=== PATIENT | male | born 1940 | race Caucasian/White ===

== ENCOUNTER 2022-01-19 20:36 | Emergency (ER) | payer MEDICARE, OTHER ==
[~2022-01-19] VITALS: Ht 170.2 cm; Wt 72.1 kg
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
--- NOTE | 2022-01-19 23:39 | NUR ---
Radha dtr [phone] Suri in-law [phone]
[2022-01-19] MEDS ORDERED: ACETAMINOPHEN 325 MG TABLET ONE (23:48)
[2022-01-20] MEDS ORDERED: ACETAMINOPHEN 325 MG TABLET PO ONE
[2022-01-20] MEDS ORDERED: ACETAMINOPHEN 325 MG TABLET ONE (00:05)
--- NOTE | 2022-01-20 02:42 | NUR ---
PT SLEEPING COMOFORTABLY BREATHING UNLABORED. AWAITING PICKUP FOR DC.
[2022-01-20 06:19] VITALS: BP 141/78
--- NOTE | 2022-01-20 06:19 | NUR ---
Patient discharged to home in stable condition. Written and verbal after care instructions given. Patient verbalizes understanding of instruction.
== END 2022-01-20 06:20 | disposition home or self-care (01) ==
LOC: ER 20:42
DX: S40.012A Contusion of left shoulder, initial encounter (principal); S20.211A Contusion of right front wall of thorax, initial encounter; F19.10 Other psychoactive substance abuse, uncomplicated; F17.200 Nicotine dependence, unspecified, uncomplicated; Z60.2 Problems related to living alone; V89.2XXA Person injured in unspecified motor-vehicle accident, traffic, initial encounter; Y93.89 Activity, other specified; Y92.89 Other specified places as the place of occurrence of the external cause; Y99.8 Other external cause status
CPT/HCPCS: 71045-TC; 73030-TC